=== PATIENT | female | born 1990 | race Caucasian/White ===

== ENCOUNTER 2016-08-23 07:15 | Emergency (ER) | payer BC ==
[2016-08-23 07:33] VITALS: RESP 16; TEMP 97.9
--- NOTE | 2016-08-23 07:42 | UCPHY ---
H & P Time Seen by Provider: 08/23/16 07:37 Patient Type: Established HPI/ROS: 26-year-old female presents complaining of left leg pain for approximately 1 week duration, began as cramping behind her knee and now is in her anterior thigh. She states the pain starts at her hip and radiates down her entire leg. She recently started a new oral contraceptive and is concerned about a possible blood clot. There is no family history or personal history of blood clots. She denies fevers or chills she denies any unusual trauma. She denies back pain, she denies numbness or tingling she denies loss of bowel or bladder control. Review of systems General no fever no chills no weakness HEENT no eye pain no eye discharge. No eye redness, no sore throat Respiratory no cough, no shortness of breath Cardiac no chest pain, no peripheral edema GI no abdominal pain, no diarrhea, no constipation, no nausea, no vomiting no flank pain, no hematuria, no dysuria Musculoskeletal positive myalgias, no joint pain Heme no easy bruising, no easy bleeding Endo no polyuria, no polydipsia Skin no rashes, no pruritus Neuro no syncope, no dizziness, no headaches Psych is no suicidal ideation, no homicidal ideation Past Medical/Surgical History: Noncontributory Social History: No smoking, runs regularly Smoking Status: Never smoked Physical Exam: 26-year-old female alert and oriented no acute distress nontoxic appearance afebrile HEENT atraumatic normocephalic, extraocular muscles intact, anicteric Oropharynx negative for erythema negative exudate, tolerating her own secretions Neck supple no meningismus Lungs clear to auscultation bilaterally Heart regular rate and rhythm without murmur rub or gallop Abdomen nondistended normoactive bowel sounds soft nontender Back no CVA tenderness, no step-offs, no spinal tenderness Extremities no cyanosis clubbing or edema Left leg mild tenderness to palpation of anterior thigh, no rashes no varicose veins no masses, no swelling Distal pulses intact Neuro alert and oriented, no focal deficits Constitutional: Initial Vital Signs Temperature (C) 36.6 C 08/23/16 07:29 Heart Rate 71 08/23/16 07:29 Respiratory Rate 16 08/23/16 07:29 Blood Pressure 109/72 08/23/16 07:29 O2 Sat (%) 96 08/23/16 07:29 O2 Delivery Mode Room Air Allergies/Adverse Reactions: Penicillins Allergy (Mild, Verified 08/23/16 07:27) rash as child Home Medications: Medication Instructions Recorded Ortho Tri-Cyclen 28 Tablet 08/23/16 VITAMIN D 08/23/16 Medical Decision Making - Diagnostics Imaging: Left leg ultrasound negative for DVT ED Course/Re-evaluation: Patient seen and evaluated for left flank pain of approximately 5-7 days duration. Exam unremarkable Ultrasound negative for DVT Basic labs done CBC normal no evidence of infection ESR within normal limits BMP within normal limits Differential diagnosis considered DVT, muscle cramps, rhabdomyolysis, Impression Muscle cramps Cannot rule out an atypical sciatica Plan Home Follow-up PCP - Data Points Laboratory Results: Laboratory Results 08/23/16 08:17 08/23/16 08:17 08/23/16 08/23/16 08:17 08:17 WBC 4.44 10^3/uL 10^3/uL (3.80-9.50) RBC 4.62 10^6/uL 10^6/uL (4.18-5.33) Hgb 14.7 g/dL g/dL (12.6-16.3) Hct 43.0 % % (38.0-47.0) MCV 93.1 fL fL (81.5-99.8) MCH 31.8 pg pg (27.9-34.1) MCHC 34.2 g/dL g/dL (32.4-36.7) RDW 12.2 % % (11.5-15.2) Plt Count 225 10^3/uL 10^3/uL (150-400) MPV 9.6 fL fL (8.7-11.7) Neut % (Auto) 53.1 % % (39.3-74.2) Lymph % (Auto) 40.3 % % (15.0-45.0) [place] % (Auto) 5.0 % % (4.5-13.0) Eos % (Auto) 0.5 % L % (0.6-7.6) Baso % (Auto) 0.9 % % (0.3-1.7) Nucleat RBC Rel Count 0.0 % % (0.0-0.2) Absolute Neuts (auto) 2.36 10^3/uL 10^3/uL (1.70-6.50) Absolute Lymphs (auto) 1.79 10^3/uL 10^3/uL (1.00-3.00) Absolute Monos (auto) 0.22 10^3/uL L 10^3/uL (0.30-0.80) Absolute Eos (auto) 0.02 10^3/uL L 10^3/uL (0.03-0.40) Absolute Basos (auto) 0.04 10^3/uL 10^3/uL (0.02-0.10) Absolute Nucleated RBC 0.00 10^3/uL 10^3/uL (0-0.01) Immature Gran % 0.2 % % (0.0-1.1) Immature Gran # 0.01 10^3/uL 10^3/uL (0.00-0.10) Sodium 138 mEq/L mEq/L (134-144) Potassium 4.4 mEq/L mEq/L (3.5-5.2) Chloride 101 mEq/L mEq/L (97-110) Carbon Dioxide 26 mEq/l mEq/l (22-31) Anion Gap 11 mEq/L mEq/L (8-16) BUN 16 mg/dL mg/dL (7-23) Creatinine 0.6 mg/dL mg/dL (0.6-1.0) Estimated GFR > 60 Glucose 76 mg/dL mg/dL (70-100) Calcium 9.1 mg/dL mg/dL (8.5-10.4) Magnesium 1.9 mg/dL mg/dL (1.6-2.3) Creatine Kinase 101 IU/L IU/L (0-156) Medications Given: Discontinued Medications Ketorolac Tromethamine (Toradol) 30 mg IVP EDNOW ONE Stop: 08/23/16 08:52 Last Admin: 08/23/16 09:05 Dose: 30 mg Departure - Departure Disposition: Home, Routine, Self-Care Clinical Impression: Left leg pain Condition: Good Instructions: Muscle Spasm (ED), Leg Pain (ED) Referrals: BLAYNE FRENCH [Other] - As per Instructions - PQRS PQRS Measurement: na
[2016-08-23 08:30] LABS: % IMMATURE GRANULYOCYTES 0.2 % (0.0-1.1); ABSOLUTE IMMATURE GRANULOCYTES 0.01 10^3/uL (0.00-0.10); ADD DIFF? NO; ADD MORPH? NO; ADD SCAN? NO; ATYPICAL LYMPHOCYTE FLAG 10 (0-99); FRAGMENT RBC FLAG 0 (0-99); HEMOGLOBIN 14.7 g/dL (12.6-16.3); LEFT SHIFT FLG 0 (0-99); LIPEMIA HEMOLYSIS FLAG 90 (0-99); MEAN CELL HEMOGLOBIN 31.8 pg (27.9-34.1); MEAN CELL HEMOGLOBIN CONCENTR. 34.2 g/dL (32.4-36.7); MEAN CELL VOLUME 93.1 fL (81.5-99.8); MEAN PLATELET VOLUME 9.6 fL (8.7-11.7); PLATELET CLUMPS FLAG 0 (0-99); PLATELET COUNT 225 10^3/uL (150-400); RED BLOOD CELL COUNT 4.62 10^6/uL (4.18-5.33); RED CELL DISTRIBUTION WIDTH 12.2 % (11.5-15.2)
[2016-08-23 08:44] LABS: ANION GAP 11 mEq/L (8-16); CALCIUM 9.1 mg/dL (8.5-10.4); CARBON DIOXIDE 26 mEq/l (22-31); CHLORIDE 101 mEq/L (97-110); CREATININE 0.6 mg/dL (0.6-1.0); GLOMERULAR FILTRATION RATE > 60; GLUCOSE 76 mg/dL (70-100); MAGNESIUM 1.9 mg/dL (1.6-2.3); POTASSIUM 4.4 mEq/L (3.5-5.2); SODIUM 138 mEq/L (134-144)
[2016-08-23] MEDS ORDERED: KETOROLAC 30 MG/1 ML SDV IVP ONE (08:51)
[2016-08-23 09:42] VITALS: BP 98/61; PULSE 64; O2SAT 95
== END 2016-08-23 09:42 | disposition home or self-care (01) ==
LOC: CED 07:15
DX: M79.605 Pain in left leg (principal)
CPT/HCPCS: 80048-PO; 82550-PO; 83735-PO; 85025-PO; 93971-PO; 96374-PO; 99214-PO; G0463-PO; J1885